=== PATIENT | male | born 1960 | race Caucasian/White ===

== ENCOUNTER → 2025-02-20 | Outpatient (CLI) | payer OTHER, SELFPAY ==
--- NOTE | 2025-02-20 08:30 | BD_ITS ---
PROCEDURE: DEXA BONE DENSITY STUDY 02/20/2025 REASON FOR EXAM: OSTEOPOROSIS M, age 64 y/o . Postmenopausal. TECHNIQUE: DEXA BONE DENSITY STUDY COMPARISON: None FINDINGS: BMD and T-SCORES Lumbar spine: 1.061 g/cm2, T-score -0.3 Levels: L1 through L4 Left femoral neck: 0.518 g/cm2, T-score -3.0 Femoral neck comparison data not recommended for monitoring change. Left total hip: 0.698 g/cm2, T-score -2.2 Right femoral neck: 0.569 g/cm2, T-score -2.7 Femoral neck comparison data not recommended for monitoring change. Right total hip: 0.691 g/cm2, T-score -2.3 The patient does meet the pharmacological treatment recommendations for prevention of osteoporosis. BD/Dexa Bone Density Study IMPRESSION: OSTEOPOROSIS. Recommend follow-up as clinically warranted. Reading Location: [place] [id number]
== END | disposition home or self-care (01) ==
LOC: OPBD 08:03
PROVIDERS: PCP Family Medicine; Referring Provider Student in an Organized Health Care Education/Training Program; Visit Provider Student in an Organized Health Care Education/Training Program
DX: M81.0 Age-related osteoporosis without current pathological fracture (principal)
CPT/HCPCS: 77080

== ENCOUNTER 2025-04-09 09:30 | Outpatient (RCR) | payer OTHER, SELFPAY ==
--- NOTE | 2025-02-21 10:50 | HP.PTEVAL_ITS ---
Patient's Visit Information Visit Information Visit Information: RUBY BOYD is a 64 year old M referred to Physical Therapy by ARIANA Westfall with a diagnosis of DDD, spondylolisthesis. Date of Evaluation: 02/21/25 Physical Therapist: Hernan Cha DPT, OCS, CSCS Visit Plan Frequency: 2x /Week Duration: 4-6 Weeks Plan: 2x/week for 3-6 weeks IE HEP: trunk [id number], PPU 10x, PPT x20, NS position in standing, activity modificaiton, all ex 2x/day and taught to patient with HO Treat with : HS and quad stretches and teach for HEP, rollout quads adn HS prior to stretching. more lumbar and pelvic ROM progressing HEP NS position strength exercises for core to HEP, move on to standing ex when I with home mat. Subjective Subjective: Broke back getting out of bed 20+ yrs ago. Had spine glued together at the time. 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 Back is getting more painful over the years worse in back adn R hip. Can't stand or be on feet long time. Using cart helps. Can be on feet about an hour or so prior to starting to limp. 12 hour shifts 3-4 days per week, can sit briefly. No numbness or tingling in R LE L LE may tingle sometimes. Pain r LE is down to chen anteriorly. Sitting is comfortable unless he sits too long. Bone density is low and having that checked. Hobbies: working on his house. Mowing wears him out as he push mows 30 min. Worse in hip laterally. Basic ADL all I. Sleeps on couch as it feeels better, takes while to gt up in am, wakes up 3-4 x per night REgular exercise: work. Pain LB adn R leg: Pain Intensity (Out of 10): 0 Pain Intensity Range: 0 and 7 Comment: 0 at rest Objective Objective: Walks stiff adn R antalgia into PT but I. kyphotic thoracic lower segments adn decreaseed lordosis in lumbar, very poor pelvic movement Transfers bed and chair I. lumbar AROM ext mod llimited with some R hip pain lateerally, flexion tight but no pain, SB min deficits nd no pain. reeflexes 2/3 patella adn achills B sensation WNL t gross light touch B. strnegth knees and ankles 4/5, hip flexion unstable and 4-, hip abd and xt 3+/5 B. No myotomal problems. - SLR, - slump - FABR and FADDIR R although more tight slightly on R side. AROM hips is neearly symmeetrical outside of hesitancy on R to rotate adn causing melissa pin lateral hip R. Balance/Special Test Scores Oswestry Low Back Score: 15 Goals Goal 1:: I appropriate HEP lumbar[elvic rOM, HS and quad stretches and core strength to limit future probleems Goal Time Frame: 4-6 Weeks Goal 2:: slep without waking at night due to pain Goal Time Frame: 4-6 Weeks Goal 3:: Overall pain with work and home 50% improved adn 3/10 at worst and manageable. Goal Time Frame: 4-6 Weeks Goal 4:: oswestry score 5 or better Goal Time Frame: 4-6 Weeks Goal 5:: mow lawn without increased pain Goal Time Frame: 4-6 Weeks Rehabilitation Potential Physical Therapy Diagnosis: stiffness and pain in pelvis and LB limiting comfortable function. Rehabilitation Potential: Fair Anticipated Interventions Patient/Client Instruction: Educate patient on: Condition and Plan of Care For the Purpose of:: To decrease pain, To increase ROM, To improve nutrient delivery to tissue, To improve muscle performance and motor function and To increase tolerance to activity/condition/position Therapeutic Exercise to Include: Strength training, Postural training, Flexibilty training, Passive ROM and Active ROM For the Purpose of:: To decrease pain, To increase ROM, To improve nutrient delivery to tissue, To improve muscle performance and motor function and To increase tolerance to activity/condition/position Manual Therapy Techniques to Include: Mobilization, Passive ROM and Soft tissue mobilization For the Purpose of:: To decrease pain, To increase ROM and To improve nutrient delivery to tissue Thermo therapy (hot pack): Yes For the Purpose of:: To increase ROM and To improve nutrient delivery to tissue Text: Thank you for the opportunity to evaluate your patient. For Medicare and Medicare HMO plans, please review the plan of care and approve it. It will need to be FAXED BACK to us at [phone] for Medicare purposes. For Medicare only, by signing this I certify the plan of care. Please let me know if there are questions or concerns regarding this plan of care. Physician Signature: Date:
--- NOTE | 2025-03-20 10:32 | HP.PTREVAL ---
Re-Evaluation Intro: ARIANA Westfall, It has been my pleasure to treat RUBY BOYD over the last 7 visits for DDD, spondylolisthesis. Please see the progress note below for an update on the physical therapy plan of care! Subjective Subjective: Some days bettr. Feels better after therapy and lasts for a number of hours. Other days are up and down. Activities like mowing still make him worse after. Still up to 8/10 in hip r for a few hours. Overall bettter with walking tolerance. Sleep is about the same, 4-5 good hours. Ortho appointment 03/25 Objective Objective/Function: lumbar AROM ext painful , flexion min limitd adn not painful, SB look OK but feel tight. Walking with some R antalgia but not painful today. up and down steeps slowly with one rail. Overall feels 40% better but still moving hesitantly and frustrateed with pain and stiffness. Plan Plan Plan: 2x/week for 3 more weeks to end March for monitor home ROM and progress to mat based strngth in clinic adn to HEP then standing core and LE strength and postural. Get to HEP over next 3 weeks. Pt to Doctor next week and likely heading for MRI when qualifies. Balance/Gait/Functional tests Balance/Special Test Scores Oswestry Low Back Score: 15 Goals Goals Goal 1:: I appropriate HEP lumbar[elvic rOM, HS and quad stretches and core strength to limit future probleems Goal Time Frame: 4-6 Weeks Goal Progress: Progressing Goal 2:: slep without waking at night due to pain Goal Time Frame: 4-6 Weeks Goal Progress: improved Goal 3:: Overall pain with work and home 50% improved adn 3/10 at worst and manageable. Goal Time Frame: 4-6 Weeks Goal 4:: oswestry score 5 or better Goal Time Frame: 4-6 Weeks Goal 5:: mow lawn without increased pain Goal Time Frame: 4-6 Weeks Goal Progress: still hurts. Anticipated Interventions Anticipated Interventions Patient/Client Instruction: Educate patient on: Condition and Plan of Care For the Purpose of:: To decrease pain, To increase ROM, To improve nutrient delivery to tissue, To improve muscle performance and motor function and To increase tolerance to activity/condition/position Therapeutic Exercise to Include: Strength training, Postural training, Flexibilty training, Passive ROM and Active ROM For the Purpose of:: To decrease pain, To increase ROM, To improve nutrient delivery to tissue, To improve muscle performance and motor function and To increase tolerance to activity/condition/position Manual Therapy Techniques to Include: Mobilization, Passive ROM and Soft tissue mobilization For the Purpose of:: To decrease pain, To increase ROM and To improve nutrient delivery to tissue Thermo therapy (hot pack): Yes For the Purpose of:: To increase ROM and To improve nutrient delivery to tissue Re-Evaluation Ending Re-evaluation ending: Please do not hesitate to contact me at [phone] by phone or if you have questions or concerns regarding this new plan of care! Sincerely, Hernan Cha, DPT, OCS, CSCS
--- NOTE | 2025-04-09 10:02 | HP.PTDCSUM ---
Discharge Summary D/C summary: It has been my pleasure to treat RUBY BOYD referred by ARIANA Westfall, with the diagnosis of DDD, spondylolisthesis for a total of 13 visit(s). Discharge Date: Please see the following information for a summary of their discharge status. Subjective Subjective: Doing okay . Today 6 weeks for PT Patient did alot of walking yesterday PT makes me feel better Plan to make appointment for pain management Pain wakes me up at night with hips Pain LB adn R leg: Pain Intensity (Out of 10): 6 Overall Improvement % Improvement: 70 Objective Objective/Function: POSTURE: mild forward posture GAIT: reciprocal pattern PALAPTION: tender paraspinals NEUR0: denies paresthesia/tingling ,reflexes L3-4,L4-5,L5-S1 2/3 MMT: quads/hams/hip 4/5 ,ankle /toe extension 4/5 FLEXABILITY: mod tight + SLR Right leg ~ 35 degrees LUMBAR ROM: flexion 25 % loss ,extension 50% loss ,side glides 50% loss Goals Goal 1:: I appropriate HEP lumbar[elvic rOM, HS and quad stretches and core strength to limit future probleems Goal Progress: Progressing Goal 2:: slep without waking at night due to pain Goal Progress: Progressing Goal 3:: Overall pain with work and home 50% improved adn 3/10 at worst and manageable. Goal 4:: oswestry score 5 or better Goal Progress: Progressing Goal 5:: mow lawn without increased pain Goal Progress: Progressing Plan Plan: RTD Possible MRI D/C Information d/c sentence: If there are questions or concerns regarding this patient's physical therapy, please feel free to call me at [phone]. Thank you for the referral of this patient. Sincerely, Willy Alvarez, PT, Cert MDT, OCS Balance/Gait/Functional tests Balance/Special Test Scores Oswestry Low Back Score: 14 Improvement % Improvement: 70
== END 2025-04-09 19:00 | disposition home or self-care (01) ==
LOC: PT 09:30
PROVIDERS: PCP Family Medicine; Referring Provider Student in an Organized Health Care Education/Training Program; Visit Provider Student in an Organized Health Care Education/Training Program
DX: M51.362 Other intervertebral disc degeneration, lumbar region with discogenic back pain and lower extremity pain (principal); M43.16 Spondylolisthesis, lumbar region; M48.062 Spinal stenosis, lumbar region with neurogenic claudication
CPT/HCPCS: 97110; 97162; 97530

== ENCOUNTER → 2025-06-27 | Outpatient (CLI) | payer OTHER, SELFPAY ==
--- NOTE | 2025-06-27 15:47 | MRI_ITS ---
PROCEDURE: SPINE LUMBAR (ROUTINE) 06/27/2025 REASON FOR EXAM: STENOSIS, DDD, RIGHT SIDE ANTERIOR LEG SX TECHNIQUE: Procedure Code: MRISPL Modality: MR Procedure: SPINE LUMBAR (ROUTINE) COMPARISON: Correlation with lumbar spine radiographs 02/11/2025. FINDINGS: For the purposes of this report, the most caudal rectangular vertebral body will be designated L5. The next most caudal trapezoidal shaped vertebral body will be designated S1. The intervening disc at the lumbosacral angle is designated L5-S1. Lumbar levoscoliosis. Mildly exaggerated lumbar lordosis. Compression fractures of T12 and L1 vertebral bodies where there is evidence of kyphoplasty. Mild retropulsion at each level. L3-L4 left spondylolisthesis. Grade 1 L1-L2 and L2-L3 retrolisthesis. There is bone marrow edema of the L1 vertebral body which may be post procedural in nature. There is no bone marrow replacing lesion in the lumbar spine. Multilevel disc desiccation. There is no evidence of signal abnormality in the imaged distal spinal cord. The conus medullaris terminates at the level of T12. T12-L1: No significant spinal canal stenosis or neural foraminal narrowing. Small right perineural cyst. L1-L2: Posterior disc osteophyte complex, bilateral facet arthrosis, and ligamentum flavum hypertrophy. Moderate right and mild left neural foraminal narrowing. Type 1 Modic endplate changes. L2-L3: Posterior disc osteophyte complex, bilateral facet arthrosis, ligamentum flavum hypertrophy. Mild spinal canal stenosis and subarticular zone narrowing. [id number] right and mild left neural foraminal narrowing. L3-L4: Posterior disc osteophyte complex, bilateral facet arthrosis, and ligamentum flavum hypertrophy. Mild spinal canal stenosis and subarticular zone narrowing. [id number] right and mild left neural foraminal narrowing. Type 2 Modic endplate changes. L4-L5: Disc bulge flattens the ventral thecal sac. Bilateral facet arthrosis and ligamentum flavum hypertrophy. Severe left neural foraminal stenosis predominantly secondary to disc bulge. The left L4 exiting nerve root contacts the disc. Mild right neural foraminal narrowing. L5-S1: Disc bulge and bilateral facet arthrosis. No significant spinal canal stenosis or neural foraminal narrowing. Partially visualized T11-T12 left perineural cyst. Unremarkable posterior paraspinal muscles. There is a small left renal cyst. MRI/Spine Lumbar (Routine) IMPRESSION: 1. Compression fractures of T12 and L1 vertebral bodies where there is evidence of prior kyphoplasty. Associated bone marrow edema of L1 vertebral body. 2. Lumbar spondylosis most marked at L4-L5 where there is severe left neural fo raminal stenosis predominantly secondary to disc bulge. No high-grade spinal canal stenosis. Reading Location: [facility]
--- OUTSIDE RECORDS SUMMARY | 2025-06-27 16:38 | XMS RPT_ITS | CCD ---
Author Organization [facility] Care Team Providers Care Tractor Operator Battery Name Role Phone GEE, DR TIM Nathan Attending Unavaila ble GEE, DR TIM Nathan Primary Care Unavaila ble GEE, DR TIM Nathan Admitting Unavaila ble GEE, DR TIM Nathan Attending Unavaila ble GEE, DR TIM Nathan Primary Care Unavaila ble GEE, DR TIM Nathan Admitting Unavaila catrina Garcia MD, Dr. Medina Primary Care Provider Dr. Tim Garcia MD Referring Provider Marisol Guevara Attending Provider Dr. Devante Sims MD Attending Provider Jem LANE Marisol Referring Provider Dr. Jan Santizo MD Primary Care Provider Dr. Jan Santizo MD Referring Provider Jan Santizo Primary Care Unavailable Jem, Marisol Attending Unavailable Jem, Marisol Referring Unavailable Tim Garcia Primary Care Unavailable Tim Garcia Referring Unavailable Marisol Parish Attending Unavailable Devante Sims Attending Unavailable Tim Garcia Primary Care Unavailable Jan Santizo Primary Care Unavailable Jan Santizo Referring Unavailable Jem, Marisol Attending Unavailable Jan Santizo Primary Care Unavailable Jem, Marisol Attending Unavailable Jem, Marisol Referring Unavailable Jan Santizo Primary Care Unavailable Jem, Marisol Attending Unavailable Jem, Marisol Referring Unavailable Dr. Tim Garcia MD Primary Care Physician Jem LANE Marisol Attending Physician Dr. Devante Sims MD Attending Physician Dr. Jan Santizo MD Primary Care Physician Medications Current Medications Medication Drug Class(es) Dates Sig (Normalized) Sig (Original) meloxicam 7.5 mg oral tablet (2 sources) Nonsteroidal Anti-inflammatory Drug Start: 03-24-2025 take 1 tablet by mouth once daily Multivitamin tablet (5 sources) Start: 02-11-2025 Start: 02-11-2025 Multivitamin t ablet Active 1 {tbl} PO EVERY MORNING February 11, 2025 12:00am Completed/Discontinued Medications Medication Drug Class(es) Dates Sig (Normalized) Sig (Original) cyclobenzaprine hydrochloride 5 mg oral tablet (4 sources) Muscle Relaxant Start: 02-11-2025 End: 03-24-2025 take 1 tablet by mouth three times daily as needed for muscle spasms Cyclobenzaprine 5 mg tablet Discontinued 5 mg PO THREE TIMES A DAY as needed for muscle spasm 30 0 February 11, 2025 12:00am March 24, 2025 3:31pm ibuprofen 200 mg oral capsule (5 sources) Nonsteroidal Anti-inflammatory Drug Start: 02-11-2025 End: 03-24-2025 take 1 capsule by mouth every six hours as needed Ibuprofen 200 mg capsule Discontinued 200 mg PO EVERY 6 HOURS as needed February 11, 2025 12:00am March 24, 2025 3:31pm Problems Problem Classification Problem Date Documented Date Episodic/Chronic Osteoporosis (1 source) Age-related osteoporosis without current pathological fracture; Translations: [Age-related osteoporosis without current pathological fracture] Onset: 02-27-2025 Chronic Other acquired deformities (9 sources) Lumbar spondylolisthesis; Translations: [Spondylolisthesis, lumbar region] 02-11-2025 Episodic Other acquired deformities (1 source) Spondylolisthesis, lumbar region; Translations: [Spondylolisthesis, lumbar region] Onset: 02-11-2025 Episodic Residual codes; unclassified (7 sources) H/O Spinal surgery; Translations: [Other specified postprocedural states] 02-11-2025 Episodic Spondylosis; intervertebral disc disorders; other back problems (9 sources) Degeneration of lumbar intervertebral disc; Translations: [Degenerative disc disease (DDD) of lumbar region with discogenic back pain and leg pa] 02-11-2025 Chronic Spondylosis; intervertebral disc disorders; other back problems (11 sources) Spinal stenosis of lumbar region; Translations: [Spinal stenosis, lumbar region with neurogenic claudication] Onset: 02-11-2025 02-11-2025 Episodic Unclassified (4 sources) Spondylolisthesis of lumbar region Unclassified (4 sources) Spondylolisthesis of lumbar region Unclassified (4 sources) Spinal stenosis of lumbar region with neurogenic claudication Unclassified (6 sources) M51.362 - Other intervertebral disc degeneration, lumbar region with discogenic back pain and lower extremity pain,M43.16 - Spondylolisthesis, lumbar region,M48.062 - Spinal stenosis, lumbar region with neurogenic claudication Unclassified (2 sources) Other intervertebral disc degeneration, lumbar region with discogenic back pain and lower extremity pain; Translations: [Other intervertebral disc degeneration, lumbar region with discogenic back pain and lower extremity pain] Onset: 02-11-2025 Results Test Name Value Interpretation Reference Range Facility PT D/C Summary (1)on PT D/C Summary (1) [facility] [address] [place] [address] [address] [place] [address] / REHABILITATION SERVICES DISCHARGE SUMMARY MR#: [id number] Acct: [id number] Name: RUBY BOYD Rep #: [id number] : 1960 64 From: Willy Alvarez PT, Cert. MD Guerra, [facility] Referring Dr.: ARIANA Westfall Status: REG R Insurance: [email or web address] SELF PAY INSURANCE Discharge Summary D/C summary: It has been my pleasure to treat RUBY BOYD referred by ARIANA Westfall, with the diagnosis of DDD, spondylolisthesis for a total of 13 visit(s). Discharge Date: Please see the following information for a summary of their discharge status. Subjective Subjective: Doing okay . Today 6 weeks for PT Patient did alot of walking yesterday PT makes me feel better Plan to make appointment for pain management Pain wakes me up at night with hips Pain LB adn R leg: Pain Intensity (Out of 10): 6 Overall Improvement % Improvement: 70 Objective Objective/Function: POSTURE: mild forward posture GAIT: reciprocal pattern PALAPTION: tender paraspinals NEUR0: denies paresthesia/tingling ,reflexes L3-4,L4-5,L5-S1 2/3 MMT: quads/hams/hip 4/5 ,ankle /toe extension 4/5 FLEXABILITY: mod tight + SLR Right leg 35 degrees LUMBAR ROM: flexion 25 % loss ,extension 50% loss ,side glides 50% loss Goals Goal 1:: I appropriate HEP lumbar[elvic rOM, HS and quad stretches and core strength to limit future probleems Goal Progress: Progressing Goal 2:: slep without waking at night due to pain Goal Progress: Progressing Goal 3:: Overall pain with work and home 50% improved adn 3/10 at worst and manageable. Goal 4:: oswestry score 5 or better Goal Progress: Progressing Goal 5:: mow lawn without increased pain Goal Progress: Progressing Plan Plan: RTD Possible MRI D/C Information d/c sentence: If there are questions or concerns regarding this patient's physical therapy, please feel free to call me at [phone]. Thank you for the referral of this patient. Sincerely, Willy Alvarez, PT, Cert MDT, OCS Balance/Gait/Functional tests Balance/Special Test Scores Oswestry Low Back Score: 14 Improvement % Improvement: 70 04/23/25 1056 CC: ARIANA Westfall; Dr. Jan Santizo MD SHLOMO Signed Normal [facility] Orthopedic Visit Reporton Orthopedic Visit Report [facility] [address] [place] [address] OFFICE VISIT Date of Service: 03/24/25 MR#: [id number] Acct: [id number] Name: RUBY BOYD Rep #: [id number] : 1960 Provider: ARIANA Westfall Age/Sex: 64/M Location: [facility] Status: Signed Intake Vital Signs 02/11/25 09:40 Height 5 ft 9 in Intake Visit Reasons: LUMBAR SPINE Chief Complaint: Lumbar spine Is patient in pain?: Yes (Lumbar spine) Pain scale (1-10): 6 Allergies No Known Allergies Allergy (Unverified 03/24/25 15:31) Medications ???Medication ???Instructions ???Recorded ???Confirmed ???Type multivitamin 1 tab PO QAM 02/11/25 03/24/25 His tory meloxicam 7.5 mg tablet 7.5 mg PO QDAY indigestion 5 03/24/25 History PFSH Medical History Tailbone injury Surgical History H/O cervical spine surgery Family History Mother No problems noted. Father No problems noted. Social History Smoking Status: Current every day smoker tobacco type: cigarettes alcohol intake: never HPI LUMBAR SPINE Details: This documentation accurately reflects the service provided and the decisions made by me, ARIANA Westfall 03/24/25 0638. Part of today???s visit was documented by Jaida Espinoza RN, acting as scribe. RUBY BOYD is a 64 year old M here today for lumbar spine MRI and Dexa scan review. He was evaluated by pain management and started on Meloxicam has an injection scheduled for tomorrow. He st ates his pain is the same as his last visit. He would like to discuss results and next steps. Patient says that he has been in a total of about 3 weeks of physical therapy at this point. Patient says that he is going twice a week, so far he has not noticed any benefit. Plan is to go a total of 6 to 8 weeks twice a week. Patient is here to review his bone density scan. He has not yet had his MRI due to needing to complete physical therapy before approval by insurance. HPI from 02/11/25: RUBY BOYD is a 64 year old M here today for lumbar spine. Patient is having pain in the lower back. He states that his pain is a 6. The pain can be sharp,stabbing, sore, achy, and throbbing. The pain goes down only the right leg. Pain goes down the right anterior thigh. Pain goes into the chen and the foot and ankle of the right foot. On occasion he will get some left-sided tingling however this is not a consistent issue. Patient has had numbness and tinging in the feet and toes, but it's not constant. His pain has worsened over the last 5 to 6 years. This has been going on for years, but has been gradually getting worse over the past 6 year. The leg pain from the lower back pain has started about a year ago. Patient broke his back about 20 years ago. He was getting out of bed, and he thought he twisted his back when he was getting out of bed. Patient states that he didn't feel any pops, or cracks in his back, the only thing he felt was sharp pain in the lower back. He went to the [facility] the same day, and they though it was a kidney stone. They did a cat scan, and it was inconclusive. The ER gave him a jug to urinate in. A few days later he went to his PCP Dr. Garcia, and he did an xray on his back, the xray showed 2 broken vertebrae and lumbar. Patient went to a lot of doctors, and wore a back brace. Patient got his spine glued together in 2000 at [facility]. Standing for a long period of time makes the pain worse. He states that his pain gets up to a 9 when he stands. Walking makes the pain worse. When he walks for a long period of time his pain is about a 10. Says that he can only stand or walk for about an hour before he has to sit down due to the pain. Leaning on a grocery cart does make the pain better. Sitting does help relieve the symptoms. Patient is currently taking ibuprofen for the pain, he states that it dulls the pain. When he takes the ibuprofen his pain is down to like a 6. He has never had any injections his lower back. Patient did physical therapy at [facility]. He was riding a stationary bike, when his physical therapist wasn't paying attention to the patient. He went to [facility] for 2 visits, he wasn't happy with the service, and that was around 2000. Patient doesn't have any diabetes, or blood thinners. Patient is a current smoker, but doesn't do any drugs. Patient states that his balance is okay, but when he is in pain he gets off balance. Patient says that he has a history of low bone density and osteoporosis however he denies any recent bone density scan he does take supplements of vitamin D and calcium. Ortho Exam (more content not included)... Normal [facility] Re-Evaluation - PT (1)on Re-Evaluation - PT (1) [facility] [address] [place] [address] / REEVALUATION / MEDICARE RECERTIFICATION PHYSICAL THERAPY MR#: [id number] Acct: [id number] Name: RUBY BOYD Rep #: [id number] : 1960 64 From: Hernan Cha DPT, OCS, CSCS Referring Dr.: ARIANA Westfall Status:REG RCR Insurance: [employer] SELF PAY INSURANCE Re-Evaluation Intro: ARIANA Westfall, It has been my pleasure to treat RUBY BOYD over the last 7 visits for DDD, spondylolisthesis. Please see the progress note below for an update on the physical therapy plan of care! Subjective Subjective: Some days bettr. Feels better after therapy and lasts for a number of hours. Other days are up and down. Activities like mowing still make him worse after. Still up to 8/10 in hip r for a few hours. Overall bettter with walking tolerance. Sleep is about the same, 4-5 good hours. Ortho appointment 03/25 Objective Objective/Function: lumbar AROM ext painful , flexion min limitd adn not painful, SB look OK but feel tight. Walking with some R antalgia but not painful today. up and down steeps slowly with one rail. Overall feels 40% better but still moving hesitantly and frustrateed with pain and stiffness. Plan Plan Plan: 2x/week for 3 more weeks to end March for monitor home ROM and progress to mat based strngth in clinic adn to HEP then standing core and LE strength and postural. Get to HEP over next 3 weeks. Pt to Doctor next week and likely heading for MRI when qualifies. Balance/Gait/Functional tests Balance/Special Test Scores Oswestry Low Back Score: 15 Goals Goals Goal 1:: I appropriate HEP lumbar[elvic rOM, HS and quad stretches and core strength to limit future probleems Goal Time Frame: 4-6 Weeks Goal Progress: Progressing Goal 2:: slep without waking at night due to pain Goal Time Frame: 4-6 Weeks Goal Progress: improved Goal 3:: Overall pain with work and home 50% improved adn 3/10 at worst and manageable. Goal Time Frame: 4-6 Weeks Goal 4:: oswestry score 5 or better Goal Time Frame: 4-6 Weeks Goal 5:: mow lawn without increased pain Goal Time Frame: 4-6 Weeks Goal Progress: still hurts. Anticipated Interventions Anticipated Interventions Patient/Client Instruction: Educate patient on: Condition and Plan of Care For the Purpose of:: To decrease pain, To increase ROM, To improve nutrient delivery to tissue, To improve muscle performance and motor function and To increase tolerance to activity/condit ion/position Therapeutic Exercise to Include: Strength training, Postural training, Flexibilty training, Passive ROM and Active ROM For the Purpose of:: To decrease pain, To increase ROM, To improve nutrient delivery to tissue, To improve muscle performance and motor function and To increase tolerance to activity/condition/posi tion Manual Therapy Techniques to Include: Mobilization, Passive ROM and Soft tissue mobilization For the Purpose of:: To decrease pain, To increase ROM and To improve nutrient delivery to tissue Thermo therapy (hot pack): Yes For the Purpose of:: To increase ROM and To improve nutrient delivery to tissue Re-Evaluation Ending Re-evaluation ending: Please do not hesitate to contact me at [phone] by phone or if you have questions or concerns regarding this new plan of care! Sincerely, KRYSTAL ManzanoT, OCS, CSCS 03/20/25 1032 CC: ARIANA Westfall; Dr. Jan Santizo MD EBG Signed For Medicare only, by signing this I certify the plan of care. Physicians Signature Date Normal [facility] Inital Evaluation (1) - PTon 02-21-2025 Inital Evaluation (1) - PT [facility] [address] [place] [address] / REHABILITATION SERVICES INITIAL EVALUATION MR#: [id number] Acct: [id number] Name: RUBY BOYD Rep #: [id number] : 1960 64 From: Hernan Cha DPT, OCS, CSCS Referring Dr.: RAIANA Westfall Status: REG RCR Insurance: [employer] SELF PAY INSURANCE Patient's Visit Information Visit Information Visit Information: RUBY BOYD is a 64 year old M referred to Physical Therapy by ARIANA Westfall with a diagnosis of DDD, spondylolisthesis. Date of Evaluation: 02/21/25 Physical Therapist: Hernan Cha DPT, ASIM, CSCS Visit Plan Frequency: 2x /Week Duration: 4-6 Weeks Plan: 2x/week for 3-6 weeks IE HEP: trunk [id number], PPU 10x, PPT x20, NS position in standing, activity modificaiton, all ex 2x/day and taught to patient with HO Treat with : HS and quad stretches and teach for HEP, rollout quads adn HS prior to stretching. more lumbar and pelvic ROM progressing HEP NS position strength exercises for core to HEP, move on to standing ex when I with home mat. Subjective Subjective: Broke back getting out of bed 20+ yrs ago. Had spine glued together at the time. 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 Back is getting more painful over the years worse in back adn R hip. Can't stand or be on feet long time. Using cart helps. Can be on feet about an hour or so prior to starting to limp. 12 hour shifts 3-4 days per week, can sit briefly. No numbness or tingling in R LE L LE may tingle sometimes. Pain r LE is down to chen anteriorly. Sitting is comfortable unless he sits too long. Bone density is low and having that checked. Hobbies: working on his house. Mowing wears him out as he push mows 30 min. Worse in hip laterally. Basic ADL all I. Sleeps on couch as it feeels better, takes while to gt up in am, wakes up 3-4 x per night REgular exercise: work. Pain LB adn R leg: Pain Intensity (Out of 10): 0 Pain Intensity Range: 0 and 7 Comment: 0 at rest Objective Objective: Walks stiff adn R antalgia into PT but I. kyphotic thoracic lower segments adn decreaseed lordosis in lumbar, very poor pelvic movement Transfers bed and chair I. lumbar AROM ext mod llimited with some R hip pain lateerally, flexion tight but no pain, SB min deficits nd no pain. reeflexes 2/3 patella adn achills B sensation WNL t gross light touch B. strnegth knees and ankles 4/5, hip flexion unstable and 4-, hip abd and xt 3+/5 B. No myotomal problems. - SLR, - slump - FABR and FADDIR R although more tight slightly on R side. AROM hips is neearly symmeetrical outside of hesitancy on R to rotate adn causing melissa pin lateral hip R. Balance/Special Test Scores Oswestry Low Back Score: 15 Goals Goal 1:: I appropriate HEP lumbar[elvic rOM, HS and quad stretches and core strength to limit future probleems Goal Time Frame: 4-6 Weeks Goal 2:: slep without waking at night due to pain Goal Time Frame: 4-6 Weeks Goal 3:: Overall pain with work and home 50% improved adn 3/10 at worst and manageable. Goal Time Frame: 4-6 Weeks Goal 4:: oswestry score 5 or better Goal Time Frame: 4-6 Weeks Goal 5:: mow lawn without increased pain Goal Time Frame: 4-6 Weeks Rehabilitation Potential Physical Therapy Diagnosis: stiffness and pain in pelvis and LB limiting comfortable function. Rehabilitation Potential: Fair Anticipated Interventions Patient/Client Instruction: Educate patient on: Condition and Plan of Care For the Purpose of:: To decrease pain, To increase ROM, To improve nutrient delivery to tissue, To improve muscle performance and motor function and To increase tolerance to activity/conditi on/position Therapeutic Exercise to Include: Strength training, Postural training, Flexibilty training, Passive ROM and Active ROM For the Purpose of:: To decrease pain, To increase ROM, To improve nutrient delivery to tissue, To improve muscle performance and motor function and To increase tolerance to activity/condition/posi tion Manual Therapy Techniques to Include: Mobilization, Passive ROM and Soft tissue mobilization For the Purpose of:: To decrease pain, To increase ROM and To improve nutrient delivery to tissue Thermo therapy (hot pack): Yes For the Purpose of:: To increase ROM and To improve nutrient delivery to tissue Text: Thank you for the opportunity to evaluate your patient. For Medicare and Medicare HMO plans, please review the plan of care and approve it. It will need to be FAXED BACK to us at [phone] for Medicare purposes. For Medicare only, by signing this I certify the plan of care. Please let me know if there are questions or concerns regarding this plan of care. Physician Signature: Date: 02/21/25 1050 (more content not included)... Normal [facility] Bone density reportOrdered B y: Vidal Omalley on 02-20-2025 Study report Skeletal system DXA [facility] [address] [place], [place] [address] Dexa Bone Density Study MR#: [id number] Acct: [id number] Name: RUBY BOYD Rep #: [id number] : 1960 M 64 From: Wilfrid Omalley MD PCP: Dr. Jan Santioz MD Status: RE G CLI Study:Dexa Bone Density Study Date of Exam: 02/20/25 Exam# [id number] Ordering Dr: Silvano Parish PROCEDURE: DEXA BONE DENSITY STUDY 02/20/2025 REASON FOR EXAM: OSTEOPOROSIS M, age 64 y/o . Postmenopausal. TECHNIQUE: DEXA BONE DENSITY STUDY COMPARISON: None FINDINGS: BMD and T-SCORES Lumbar spine: 1.061 g/cm2, T-score -0.3 Levels: L1 through L4 Left femoral neck: 0.518 g/cm2, T-score -3.0 Femoral neck comparison data not recommended for monitoring change. Left total hip: 0.698 g/cm2, T-score -2.2 Right femoral neck: 0.569 g/cm2, T-score -2.7 Femoral neck comparison data not recommended for monitoring change. Right total hip: 0.691 g/cm2, T-score -2.3 The patient does meet the pharmacological treatment recommendations for prevention of osteoporosis. BD/Dexa Bone Density Study IMPRESSION: OSTEOPOROSIS. Recommend follow-up as clinically warranted. Reading Location: [facility] CC: ARIANA Westfall; Dr. Jan Santizo MD ~ Retaining Room Cutter: Signed [facility] Dexa Bone Density Studyon Dexa Bone Density Study [facility] Imaging Services [address] [place] [address] Dexa Bone Density Study MR#: [id number] Acct: [id number] Name: RUBY BOYD Rep #: [id number] : 1960 M 64 From: Vidal parrish MD PCP: Dr. Jan Santizo MD Status: REG CLI Study: Dexa Bone Density Study Date of Exam: 02/20/25 Exam# [id number] Ordering Dr: Marisol Parish PROCEDURE: DEXA BONE DENSITY STUDY 02/20/2025 REASON FOR EXAM: OSTEOPOROSIS M, age 64 y/o . Postmenopausal. TECHNIQUE: DEXA BONE DENSITY STUDY COMPARISON: None FINDINGS: BMD and T-SCORES Lumbar spine: 1.061 g/cm2, T-score -0.3 Levels: L1 through L4 Left femoral neck: 0.518 g/cm2, T-score -3.0 Femoral neck comparison data not recommended for monitoring change. Left total hip: 0.698 g/cm2, T-score -2.2 Right femoral neck: 0.569 g/cm2, T-score -2.7 Femoral neck comparison data not recommended for monitoring change. Right total hip: 0.691 g/cm2, T-score -2.3 The patient does meet the pharmacological treatment recommendations for prevention of osteoporosis. BD/Dexa Bone Density Study IMPRESSION: OSTEOPOROSIS. Recommend follow-up as clinically warranted. Reading Location: [facility] CC: ARIANA Westfall; Dr. Jan Santizo MD Retaining Room Cutter: Signed Normal [facility] L/S Spine Min 4 Viewson L/S Spine Min 4 Views [facility] [address] [place], [place] [id number] L/S Spine Min 4 Views MR#: [id number] Acct: [id number] Name: RUBY BOYD Rep #: [id number] : 1960 M 64 From: Avery Ferrer MD PCP: Dr. Tim Garcia MD Status: DEP AMB Study: L/S Spine Min 4 Views Date of Exam: 02/11/25 Exam# [id number] Ordering Dr: Marisol Parish ADDENDUM by Dr. Avery Ferrer MD on 02/13/25 at 2243 No addendum. Reading Location: [facility] 02/13/25 2244 Date cc: ARIANA Westfall; Dr. Tim Garcia MD * Signed PROCEDURE: L/S SPINE MIN 4 VIEWS 02/11/2025 REASON FOR EXAM: CHRONIC BACK PAIN TECHNIQUE: L/S SPINE MIN 4 VIEWS COMPARISON: None. FINDINGS: Moderate compression deformities of T12 and L1 with vertebroplasty material. Mild T11 compression deformity. Exaggerated kyphosis of the levels of these compression deformities. Levoscoliosis centered at L2. Grade 1 retrolisthesis of L1 on L2 and L2 on L3. Goaqptuf-be-nyzjvm degenerative changes of the visualized spine. Severe lower lumbar facet arthropathy. RAD/L/S Spine Min 4 Views IMPRESSION: Spondylosis. Compression deformity some with vertebroplasty material. Spondylolisthesis. Exaggerated kyphosis. Levoscoliosis. Reading Location: [facility] CC: ARIANA Westfall; Dr. Tim Garcia MD Retaining Room Cutter: Signed Normal [facility] Orthopedic Visit Reporton Orthopedic Visit Report [facility] [address] [facility] [address] [place] [address] OFFICE VISIT Date of Service: 02/11/25 MR#: [id number] Acct: [id number] Name: RUBY BOYD Rep #: [id number] : 1960 Provider: ARIANA Westfall Age/Sex: 64/M Location: [facility] Status: Signed Intake Vital Signs 02/11/25 09:40 Height 5 ft 9 in Weight: 189 lb BMI 27.8 Intake Visit Reasons: LUMBAR SPINE Chief Complaint: Lumbar spine pain Accompanied by: Girlfriend Is patient in pain?: Yes Pain scale (1-10): 6 Allergies No Known Allergies Allergy (Unverified 02/11/25 09:41) Medications ???Medication ???Instructions ???Recorded ???Confirmed ???Type cyclobenzaprine 5 mg tablet 5 mg PO TID PRN muscle spasm #30 0 02/11/25 02/11/25 Rx tabs ibuprofen 200 mg capsule 200 mg PO Q6H PRN 02/11/25 5 History multivitamin 1 tab PO QAM 02/11/25 02/11/25 His tory Have you fallen in the past year?: No PFSH Medical History Tailbone injury Surgical History H/O cervical spine surgery Family History Mother No problems noted. Father No problems noted. Social History Smoking Status: Current every day smoker tobacco type: cigarettes alcohol intake: never HPI LUMBAR SPINE Details: This documentation accurately reflects the service provided and the decisions made by me, ARIANA Westfall 02/11/25 0938. Part of today???s visit was documented by Reyna Benitez MA, acting as scribe. RUBY BOYD is a 64 year old M here today for lumbar spine. Patient is having pain in the lower back. He states that his pain is a 6. The pain can be sharp,stabbing, sore, achy, and throbbing. The pain goes down only the right leg. Pain goes down the right anterior thigh. Pain goes into the chen and the foot and ankle of the right foot. On occasion he will get some left-sided tingling however this is not a consistent issue. Patient has had numbness and tinging in the feet and toes, but it's not constant. His pain has worsened over the last 5 to 6 years. This has been going on for years, but has been gradually getting worse over the past 6 year. The leg pain from the lower back pain has started about a year ago. Patient broke his back about 20 years ago. He was getting out of bed, and he thought he twisted his back when he was getting out of bed. Patient states that he didn't feel any pops, or cracks in his back, the only thing he felt was sharp pain in the lower back. He went to the [facility] the same day, and they though it was a kidney stone. They did a cat scan, and it was inconclusive. The ER gave him a jug to urinate in. A few days later he went to his PCP Dr. Garcia, and he did an xray on his back, the xray showed 2 broken vertebrae and lumbar. Patient went to a lot of doctors, and wore a back brace. Patient got his spine glued together in 2000 at [facility]. Standing for a long period of time makes the pain worse. He states that his pain gets up to a 9 when he stands. Walking makes the pain worse. When he walks for a long period of time his pain is about a 10. Says that he can only stand or walk for about an hour before he has to sit down due to the pain. Leaning on a grocery cart does make the pain better. Sitting does help relieve the symptoms. Patient is currently taking ibuprofen for the pain, he states that it dulls the pain. When he takes the ibuprofen his pain is down to like a 6. He has never had any injections his lower back. Patient did physical [facility]. He was riding a stationary bike, when his physical therapist wasn't paying attention to the patient. He went to [facility] for 2 visits, he wasn't happy with the service, and that was around 2000. Patient doesn't have any diabetes, or blood thinners. Patient is a current smoker, but doesn't do any drugs. Patient states that his balance is okay, but when he is in pain he gets off balance. Patient says that he has a history of low bone density and osteoporosis however he denies any recent bone density scan he does take supplements of vitamin D and calcium. Ortho Exam General General: Yes no acute distress Neurologic: Yes alert and Yes oriented x3 Spine SPINE TESTING CERVICAL THORACIC LUMBAR Musculoskeletal Strength 0=absent - 5=normal Details: Neurological exam of the lower extremities shows 5x5 power. Increased pain with hip flexion. Normal sensations across all dermatomes. No hyperreflexia. No midline or paraspinal tenderness. Physical exam also shows a thoracic kyphosis. Imaging also shows a re (more content not included)... Normal [facility] CORONAVIRUS PCR - [facility] 01-13-2022 SARS-CoV-2 (COVID-19) RNA JESSENIA+probe Ql (Unsp spec) Positive Abnormal NORMAL: NEGATIVE [facility] Comment on above: Result Comment: { CA LLED TO KAYLEIGH/Rosemary1/BKO { READ BACK BY FAXED TO IC Performed By: #### [id number] #### [facility],[address] [place] [address] SEND TO IC? YES Normal [facility] Comment on above: Result Comment: RESU LTS FAXED TO INFECTION CONTROL. SARS-CoV-2 THIS TEST IS BEING USED UNDER THE FDA EUA PROCEDURE. THIS ASSAY HAS BEEN VALIDATED IN THE [facility] FOR USE WITH NASOPHARYNGEAL SPECIMENS IN [facility]. INTERPRETIVE DATA LABORATORY TEST RESULTS SHOULD ALWAYS BE CONSIDERED IN THE CONTEXT OF CLINICAL OBSERVATIONS AND EPIDEMIOLOGICAL DATA IN MAKING FINAL DIAGNOSIS AND PATIENT MANAGEMENT DECISIONS. PATIENT MANAGEMENT SHOULD FOLLOW CURRENT CDC GUIDELINES. A POSITIVE TEST RESULT FOR COVID-19 INDICATES THAT RNA FROM SARS-CoV-2 WAS DETECTED, AND THE PATIENT IS INFECTED WITH THE VIRUS AND PRESUMED TO BE CONTAGIOUS. A NEGATIVE TEST RESULT FOR THIS TEST MEANS THAT SARS-CoV-2 RNA WAS NOT PRESENT IN THE SPECIMEN ABOVE THE LIMIT OF DETECTION. HOWEVER, A NEGATVIE RESULT DOES NOT RULE OUT COVID-19 AND SHOULD NOT BE USED THE SOLE BASIS FOR TREATMENT OR PATIENT MANAGEMENT DECISIONS. A NEGATIVE RESULT DOES NOT EXCLUDE THE POSSIBILITY OF COVID-19. WHEN DIAGNOSTIC TESTING IS NEGATIVE, THE POSSIBLILTY OF A FALSE NEGATIVE RESULT SHOULD BE CONSIDERED IN THE CONTEXT OF A PATIENT'S RECENT EXPOSURES AND THE PRESENCE OF CLINICAL SIGNS AND SYMPTOMS CONSISTENT WITH COVID-19. THE POSSIBILITY OF A FALSE NEGATIVE RESULT SHOULD ESPECIALLY BE CONSIDERED IF THE PATIENT'S RECENT EXPOSURES OR CLINICAL PRESENTATION INDICATE THAT COVID-19 IS LIKELY, AND DIAGNOSTIC TESTS FOR OTHER CAUSES OF ILLNESS (e.g., OTHER RESPIRATORY ILLNESS) ARE NEGATIVE. IF COVID-19 IS STILL SUSPECTED BASED ON EXPOSURE HISTORY TOGETHER WITH OTHER CLINICAL FINDINGS, RE-TESTED SHOULD BE CONSIDERED BY HEALTHCARE PROVIDERS IN CONSULTATION WITH PUBLIC HEALTH AUTHORITIES. Performed By: #### 2 [id number] #### [place] [id number] CORONAVIRUS PCR - [facility] 07-23-2021 SARS-CoV-2 (COVID-19) RNA JESSENIA+probe Ql (Unsp spec) Positive Abnormal NORMAL: NEGATIVE [facility] Comment on above: Result Comment: { CA LLED TO FAXED TO IC { READ BACK BY Performed By: #### [id number] #### [place] [id number] SEND TO IC? YES Normal [facility] Comment on above: Result Comment: RESU LTS FAXED TO INFECTION CONTROL. SARS-CoV-2 THIS TEST IS BEING USED UNDER THE FDA EUA PROCEDURE. THIS ASSAY HAS BEEN VALIDATED IN THE [facility] FOR USE WITH NASOPHARYNGEAL SPECIMENS IN [facility]. INTER[facility]ORATORY TEST RESULTS SHOULD ALWAYS BE CONSIDERED IN THE CONTEXT OF CLINICAL OBSERVATIONS AND EPIDEMIOLOGICAL DATA IN MAKING FINAL DIAGNOSIS AND PATIENT MANAGEMENT DECISIONS. PATIENT MANAGEMENT SHOULD FOLLOW CURRENT CDC GUIDELINES. A POSITIVE TEST RESULT FOR COVID-19 INDICATES THAT RNA FROM SARS-CoV-2 WAS DETECTED, AND THE PATIENT IS INFECTED WITH THE VIRUS AND PRESUMED TO BE CONTAGIOUS. A NEGATIVE TEST RESULT FOR THIS TEST MEANS THAT SARS-CoV-2 RNA WAS NOT PRESENT IN THE SPECIMEN ABOVE THE LIMIT OF DETECTION. HOWEVER, A NEGATVIE RESULT DOES NOT RULE OUT COVID-19 AND SHOULD NOT BE USED THE SOLE BASIS FOR TREATMENT OR PATIENT MANAGEMENT DECISIONS. A NEGATIVE RESULT DOES NOT EXCLUDE THE POSSIBILITY OF COVID-19. WHEN DIAGNOSTIC TESTING IS NEGATIVE, THE POSSIBLILTY OF A FALSE NEGATIVE RESULT SHOULD BE CONSIDERED IN THE CONTEXT OF A PATIENT'S RECENT EXPOSURES AND THE PRESENCE OF CLINICAL SIGNS AND SYMPTOMS CONSISTENT WITH COVID-19. THE POSSIBILITY OF A FALSE NEGATIVE RESULT SHOULD ESPECIALLY BE CONSIDERED IF THE PATIENT'S RECENT EXPOSURES OR CLINICAL PRESENTATION INDICATE THAT COVID-19 IS LIKELY, AND DIAGNOSTIC TESTS FOR OTHER CAUSES OF ILLNESS (e.g., OTHER RESPIRATORY ILLNESS) ARE NEGATIVE. IF COVID-19 IS STILL SUSPECTED BASED ON EXPOSURE HISTORY TOGETHER WITH OTHER CLINICAL FINDINGS, RE-TESTED SHOULD BE CONSIDERED BY HEALTHCARE PROVIDERS IN CONSULTATION WITH PUBLIC HEALTH AUTHORITIES. Performed By: #### [id number] #### [facility],[address] [place] [address] Vital Signs Date Time Vital Sign Value Performing Clinician Faci lity 02-11-2025 09:40-0400 Body height 175.[address] Tim Garcia MD Work Phone: [facility] 02-11-2025 09:40-0400 Body mass index (BMI) [Ratio] 27.8 kg/m2 Dr. Tim Garcia MD Work Phone: [facility] 02-11-2025 09:40-0400 Body weight 85.[address] Tim Garcia MD Work Phone: [facility] Encounters Encounter Date Encounter Type Care Provider Facility Start: 04-09-2025 End: 04-09-2025 ambulatory [facility] Facility:[facility] Start: 04-09-2025 End: 04-09-[address] -Physical Therapy Work Phone: Start: 03-24-2025 End: 03-24-2025 Patient encounter procedure [address] -[facility] Work Phone: Start: 03-24-2025 End: 03-24-[address] Tim Garcia MD Work Phone: -[facility] Start: 03-20-2025 ambulatory [facility] y:[facility] Start: 03-20-[address] [facility] Work Phone: Start: 02-21-[address] [facility] [facility] Work Phone: Start: 02-20-2025 End: 02-20-[address] Tim Garcia MD Work Phone: -[facility] Start: 02-20-2025 End: 02-20-2025 Patient encounter procedure [facility] Work Phone: Start: 02-20-2025 End: 02-20-2025 ambulatory [facility] Facility:[facility] Start: 02-11-2025 End: 02-11-[address] Devante Sims MD -[facility] Start: 02-11-2025 End: 02-11-[address] Tim Garcia MD Work Phone: -[facility] Start: 01-13-2022 End: 01-13-[address] TIM FLYNN [facility] Start: 07-22-2021 End: 07-22-[address] TIM FLYNN [facility] Procedures Date Procedure Procedure Detail Performing Clinician Start: 02-20-2025 Dual energy X-ray absorptiometry Dr. Tim Garcia MD Work Phone: Start: 02-11-2025 X-ray of lumbosacral spine Dr. Tim Garcia MD Work Phone: Plan of Treatment Date Care Activity Detail Author Start: 02-11-2025 X-ray of lumbosacral spine L/S Spine Min 4 Views [facility] Start: 02-11-2025 XR Spine Lumbar and Sacrum GE 4 Views [facility] MR Lumbar spine [facility] Payers Date Payer Category Payer Self-pay 2003 Unknown [id number] 1960 Unknown [id number] [id number] [id number] 1960 Unknown [id number] 2.16.84 [id number] Unknown [id number] 2.16.8 [id number] Unknown [id number] 2.16.8 [id number] Unknown [id number] 2.16.8 [id number] Unknown [id number] 2.16.8 [id number] Unknown [id number] 2.16.8 [id number] Unknown [id number] 2.16.8 [id number] Social History Date Type Detail Facility Start: 02-11-2025 Tobacco smoking stat us [facility] Smokes tobacco daily (finding) [facility] Start: 1960 Sex Assigned At Male [facility] Sex Male [facility] Discharge summary 04-09-2025 Note Date & Type Note Facility 04-09-2025 Discharge summary Note Date/Time April 09, 2025 7:00pm [facility] Physical Therapy [address] [place] [address] / REHABILITATION SERVICES DISCHARGE SUMMARY MR#: [id number] Acct: [id number] Name: RUBY BOYD Rep #: [id number] : 1960 64 From: Cert. MARK Neumann, OCS Referring DrVadim: ARIANA Westfall Status: REG RCR Insurance: [employer] S[employer]URANCE Discharge Summary D/C summary: It has been my pleasure to treat RUBY BOYD referred by ARIANA Westfall,with the diagnosis of DDD, spondylolisthesis for a total of 13 visit(s). Discharge Date: Please see the following information for a summary of their discharge status. Subjective Subjective: Doing okay . Today 6 weeks for PT Patient did alot of walking yesterday PT makes me feel better Plan to make appointment for pain management Pain wakes me up at night with hips Pain LB adn R leg: Pain Intensity (Out of 10): 6 Overall Improvement % Improvement: 70 Objective Objective/Function: POSTURE: mild forward posture GAIT: reciprocal pattern PALAPTION: tender paraspinals NEUR0: denies paresthesia/tingling ,reflexes L3-4,L4-5,L5-S1 2/3 MMT: quads/hams/hip 4/5 ,ankle /toe extension 4/5 FLEXABILITY: mod tight + SLR Right leg ~ 35 degrees LUMBAR ROM: flexion 25 % loss ,extension 50% loss ,side glides 50% loss Goals Goal 1:: I appropriate HEP lumbar[elvic rOM, HS and quad stretches and core strength to limit future probleems Goal Progress: Progressing Goal 2:: slep without waking at night due to pain Goal Progress: Progressing Goal 3:: Overall pain with work and home 50% improved adn 3/10 at worst and manageable. Goal 4:: oswestry score 5 or better Goal Progress: Progressing Goal 5:: mow lawn without increased pain Goal Progress: Progressing Plan Plan: RTD Possible MRI D/C Information d/c sentence: If there are questions or concerns regarding this patient's physical therapy, please feel free to call me at [phone]. Thank you for the referral of this patient. Sincerely, Willy Alvarez, PT, Cert MDT, OCS Balance/Gait/Functional tests Balance/Special Test Scores Oswestry Low Back Score: 14 Improvement % Improvement: 70 <Electronically signed by Willy Alvarez PT, Cert. T, OCS> 04/23/25 1056 CC: ARIANA Westfall; Dr. Jan Santizo MD ~ [place] Signed [facility] Work Phone: Discharge summary 04-09-2025 Note Date & Type Note Facility 04-09-2025 Discharge summary [facility] Evaluation note 02-11-2025 Note Date & Type Note Facility 02-11-2025 Evaluation note Diagnosis Onset Date Resolution Degenerative disc disease (DDD) of lumbar region with discogenic back pain acute February 11, 2025 9:32am History of kyphoplasty acute Au 2024 9:32am Lumbar stenosis with neurogenic claudication acute February 112024 9:32am Spondylolisthesis of lumbar region acute February 11, 2025 9:32am [facility] Work Phone: Evaluation note 02-11-2025 Note Date & Type Note Facility 02-11-2025 Evaluation note Diagnosis Onset Date Resolution Degenerative disc disease (DDD) of lumbar region with discogenic back pain acute February 11, 2025 9:32am History of kyphoplasty acute Au 2024 9:32am Lumbar stenosis with neurogenic claudication acute February 112024 9:32am Spondylolisthesis of lumbar region acute February 11, 2025 9:32am Degenerative disc disease (DDD) of lumbar region with discogenic back pain acute 2024 2:46pm History of kyphoplasty acute Se ptember 2024 2:46pm Lumbar stenosis with neurogenic claudication acute r 2024 2:46pm Spondylolisthesis of lumbar region acute March 24, 2025 2:46pm [facility] Work Phone: Clinical Note 09-05-2020 Note Date & Type Note Facility 09-05-2020 Note Patient Outreach ([place] VAMN) RUBY BOYD ([id number]) 1960 M Date Time Provider Department 09/05/20 [facility] During your visit today, we recorded the following information about you: Allergies As of Date: 09/05/2020 (No Known Allergies) Date Reviewed: 06/26/2019 Reviewed by: Avelina Núñez MA - Fully Assessed Order(s):SARS-COVID VACCINE 1ST DOSE APPT [[id number]] Order #: [id number] FUTURE Prescriptions as of 09/05/2020 Sig: SILDENAFIL 100 MG TABLET Take 1 tablet by mouth as nee* CARBAMAZEPINE 200 MG TABLET Take 2 tablets by mouth every* Problem List As Of Date 09/05/2020 Noted Resolved Epilepsy (HCC) [G40.909] 10/16/2006 LUMBAGO [M54.5] 10/16/2006 BONE AND CARTILAGE DIS NOS [M89.9, M94.9] 10/16/2006 ADJUSTMENT DISORDER WITH DEPRESSED MOOD [F43.21]10/16/2006 06/28/2007 DEPRESSIVE DISORDER NEC [F32.9] 06/28/2007 Compression fracture of lumbar spine, non-traum*09/08/2010 Encounter Status:Closed by EPIC, PRODUSER on 09/08/20 [facility] Evaluation note Note Date & Type Note Facility Evaluation note No assessment information availa ble [facility] Work Phone: Reason for referral (narrative) Note Date & Type Note Facility Reason for referral (narrative) No reason for referral information available [facility] Work Phone: Summary Purpose Family History No Family History Records FoundNo Family History Records FoundNo Family History Records Found Advance Directives No Advanced Directives Records FoundNo Advanced Directives Records FoundNo Advanced Directives Records Found Chief Complaint and Reason for Visit Chief Complaint Admit Date LUMBAR SPINE February 11, 2025 9:3 2am Room 2 February 11, 2025 9:5 9am Chief Complaint Admit Date LUMBAR SPINE February 11, 2025 9:3 2am Room 2 February 11, 2025 9:5 9am osteoporosis February 20, 2025 8: 03am DDD RX HERE February 21, 2025 9: 35am Reason for Visit Admit Date Degenerative disc disease (D DD) of lumbar region with discogenic back pain February 11, 2025 9:32am History of kyphoplasty February 11, 2025 9:32am Lumbar stenosis with neurogenic claudica tion February 11, 2025 9:32am Spondylolisthesis of lumbar region Augus t 2024 9:32am Chief Complaint Admit Date LUMBAR SPINE February 11, 2025 9:3 2am Room 2 February 11, 2025 9:5 9am osteoporosis February 20, 2025 8: 03am DDD RX HERE March 20, 2025 10:00am LUMBAR SPINE March 24, 2025 2:46pm Chief Complaint Admit Date LUMBAR SPINE February 11, 2025 9:3 2am Room 2 February 11, 2025 9:5 9am osteoporosis February 20, 2025 8: 03am LUMBAR SPINE March 24, 2025 2:46pm DDD RX HERE April 09, 2025 9: 30am Reason for Visit Admit Date Degenerative disc disease (D DD) of lumbar region with discogenic back pain February 11, 2025 9:32am History of kyphoplasty February 11, 2025 9:32am Lumbar stenosis with neurogenic claudica tion February 11, 2025 9:32am Spondylolisthesis of lumbar region Augus t 2024 9:32am Degenerative disc disease (D DD) of lumbar region with discogenic back pain March 24, 2025 2:46pm History of kyphoplasty March 24, 025 2:46pm Lumbar stenosis with neurogenic claudica tion March 24, 2025 2:46pm Spondylolisthesis of lumbar region Septe mber 2024 2:46pm Additional Source Comments (unrecognized sect ion and content) No Status Records FoundNo Status Records FoundNo Status Records Found INFORMATION SOURCE (unrecogn ized section and content) DATE CREATED AUTHOR 09/01/2021 [facility] DATE CREATED AUTHOR AUTHOR'S ORGANIZ ATION 01/13/[address] [facility] DATE CREATED AUTHOR AUTHOR'S ORGANIZ ATION 04/25/2025 [facility] Care Teams (unrecognized sec tion and content) Team Status: Active Member Role/Relationship Status Dates Dr. Tim Garcia MD Family Provider Active Dr. Tim Garcia MD Primary Care Provider Active Team Status: Active Member Role/Relationship Status Dates Dr. Tim Garcia MD Primary Care Provider Active Start: February 11, 2025 Dr. Tim Garcia MD Referring Provider Active Start: February 11, 2025 ARIANA Westfall Attending Provider Active Star t: February 11, 2025 Team Status: Inactive Member Role/Relationship Status Dates Dr. Tim Garcia MD Primary Care Provider Active Start: February 11, 2025 End: February 11, 2025 Dr. Devante Sims MD Attending Provider Active S tart: February 11, 2025 End: February 11, 2025 Team Status: Inactive Member Role/Relationship Status Dates Dr. Tim Garcia MD Primary Care Provider Active Start: February 11, 2025 End: February 11, 2025 Dr. Tim Garcia MD Referring Provider Active Start: February 11, 2025 End: February 11, 2025 Marisol Parish , PA Attending Provider Active Star t: February 11, 2025 End: February 11, 2025 Team Status: Active Member Role/Relationship Status Dates Dr. Jan Santizo MD Primary Care Provider Active Team Status: Inactive Member Role/Relationship Status Dates Marisol Parish , [place] Attending Provider Active Star t: February 20, 2025 End: February 20, 2025 Marisolveda Hurtadok , [place] Referring Provider Active Star t: February 20, 2025 End: February 20, 2025 Dr. Jan Santizo MD Primary Care Provider Active Start: February 20, 2025 End: February 20, 2025 Team Status: Active Member Role/Relationship Status Dates Dr. Jan Santizo MD Primary Care Provider Active Start: February 21, 2025 Marisol Parish , [place] Attending Provider Active Star t: February 21, 2025 Marisol Jem , [place] Referring Provider Active Star t: February 21, 2025 Team Status: Active Member Role/Relationship Status Dates Dr. Jan Santizo MD Primary Care Provider Active Start: March 20, 2025 Marisol Parish , [place] Attending Provider Active Star t: March 20, 2025 Marisol Jem , [place] Referring Provider Active Star t: March 20, 2025 Team Status: Inactive Member Role/Relationship Status Dates Dr. Jan Santizo MD Primary Care Provider Active Start: March 24, 2025 End: March 24, 2025 Dr. Jan Santizo MD Referring Provider Active Start: March 24, 2025 End: March 24, 2025 Marisol Parish , [place] Attending Provider Active Star t: March 24, 2025 End: March 24, 2025 Team Status: Active Member Role/Relationship Status Dates Dr. Jan Santizo MD Primary care physician Active Team Status: Inactive Member Role/Relationship Status Dates Dr. Tim Garcia MD Primary care physician Active Start: February 11, 2025 End: February 11, 2025 Dr. Tim Garcia MD Referring Provider Active Start: February 11, 2025 End: February 11, 2025 Marisol Parish , [place] Attending physician Active Sta rt: February 11, 2025 End: February 11, 2025 Team Status: Inactive Member Role/Relationship Status Dates Dr. Tim Garcia MD Primary care physician Active Start: February 11, 2025 End: February 11, 2025 Dr. Devante Sims MD Attending physician Active Start: February 11, 2025 End: February 11, 2025 Team Status: Inactive Member Role/Relationship Status Dates ARIANA Westfall Attending physician Active Sta rt: February 20, 2025 End: February 20, 2025 ARIANA Westfall Referring Provider Active Star t: February 20, 2025 End: February 20, 2025 Dr. Jan Santizo MD Primary care physician Active Start: February 20, 2025 End: February 20, 2025 Team Status: Inactive Member Role/Relationship Status Dates Dr. Jan Santizo MD Primary care physician Active Start: March 24, 2025 End: March 24, 2025 Dr. Jan Santizo MD Referring Provider Active Start: March 24, 2025 End: March 24, 2025 ARIANA Westfall Attending physician Active Sta rt: March 24, 2025 End: March 24, 2025 Team Status: Inactive Member Role/Relationship Status Dates Dr. Jan Santizo MD Primary care physician Active Start: April 09, 2025 End: April 09, 2025 ARIANA Westfall Attending physician Active Sta rt: April 09, 2025 End: April 09, 2025 ARIANA Westfall Referring Provider Active Star t: April 09, 2025 End: April 09, 2025 Goals (unrecognized section and content) Goals may be documented in a n alternate sectionGoals may be documented in an alternate sectionGoals may be documented in an alternate sectionGoals may be documented in an alternate sectionGoals may be documented in an alternate section FOR RECORDS PERTAINING TO PATIENTS WHO ARE OR HAVE BEEN ENROLLED IN A CHEMICAL DEPENDENCY/SUBSTANCEABUSE PROGRAM, SOME INFORMATION MAY BE OMITTED. This clinical summary was aggregated from multiple sources. Caution should be exercised in using it in the provision of clinical care. This summary normalizes information from multiple sources, and as a consequence, information in this document may materially change the coding, format and clinical context of patient data. In addition, data may be omitted in some cases. CLINICAL DECISIONS SHOULD BE BASED ON THE PRIMARY CLINICAL RECORDS. [employer] provides no warranty or guarantee of the accuracy or completeness of information in this document.
== END | disposition home or self-care (01) ==
PROVIDERS: PCP Family Medicine; Referring Provider Student in an Organized Health Care Education/Training Program; Visit Provider Student in an Organized Health Care Education/Training Program
DX: M48.062 Spinal stenosis, lumbar region with neurogenic claudication (principal); M43.16 Spondylolisthesis, lumbar region; M51.362 Other intervertebral disc degeneration, lumbar region with discogenic back pain and lower extremity pain
CPT/HCPCS: 72148